=== PATIENT | female | born 1985 ===

== ENCOUNTER 2017-07-29 01:08 | Emergency (ER) | payer OTHER ==
[2017-07-29 01:32] VITALS: TEMP 98.1; O2SAT 100
[2017-07-29] MEDS ORDERED: Sodium Chloride 0.9% 1,000 ML IV ONE (02:46)
[2017-07-29] MEDS ORDERED: Sodium Chloride 0.9% 1,000 ML ONE (02:55)
[2017-07-29 03:09] LABS: RBC URINE < 1 /hpf (0-3); URINE BILIRUBIN NEGATIVE (NEGATIVE); URINE BLOOD NEGATIVE (NEGATIVE); URINE COLOR Colorless (YELLOW); URINE GLUCOSE (UA) NORMAL (Normal); URINE KETONE NEGATIVE (NEGATIVE); URINE LEUKOCYTE ESTERASE NEG Leu/uL (Negative); URINE PROTEIN NEGATIVE (NEGATIVE); URINE UROBILINOGEN NORMAL mg/dL (0.2-1.0); WBC URINE < 1 /hpf (0-5)
[2017-07-29 03:14] LABS: BASO # 0.1 K/uL (0.0-0.2); BASO % 1.1 % (0.0-2.0); EOS # 0.2 K/uL (0.0-0.7); EOS % 3.3 % (0.0-4.0); HEMATOCRIT 39.4 % (34.0-47.0); LYMPH # 1.5 K/uL (1.0-4.3); MEAN CELL VOLUME 91.7 fL (81.0-99.0); MEAN CORPUSCULAR HEMOGLOBIN 31.2 pg (27.0-31.0); MEAN CORPUSCULAR HGB CONC 34.1 g/dL (33.0-37.0); MEAN PLATELET VOLUME 8.6 fL (7.2-11.7); MONO # 0.5 K/uL (0.0-0.8); MONO % 7.1 % (0.0-10.0); RED CELL DISTRIBUTION WIDTH 12.9 % (11.5-14.5); WHITE BLOOD COUNT 7.5 K/uL (4.8-10.8)
[2017-07-29 03:25] LABS: ALB/GLOB RATIO 1.2 (1.0-2.1); ALCOHOL SERUM < 10 mg/dl (0-10); ALKALINE PHOSPHATASE 61 U/L (38-126); ALT/SGPT 29 U/L (9-52); AST/SGOT 21 U/L (14-36); BILIRUBIN,TOTAL 0.6 mg/dL (0.2-1.3); BLOOD UREA NITROGEN 13 mg/dL (7-17); CALCIUM 9.1 mg/dl (8.6-10.4); CARBON DIOXIDE 21 mmol/L (22-30); CHLORIDE 104 mmol/L (98-107); GFR AFRICAN-AMERICAN > 60; GLUCOSE,RANDOM 94 mg/dL (65-105); POTASSIUM 3.6 mmol/L (3.6-5.2); SODIUM 140 mmol/L (132-148)
--- NOTE | 2017-07-29 05:12 | C.PDOC ---
History Of Present Illness 31 y/o female with c/o of feeling shaky, with tightness in throat and chest, SOB , and weakness x 1 day. Pt states that she was drinking heavily for past 4 days and stopped yesterday and have been experiencing those symptoms since. Pt denies fever, CP, dizziness, palpitations , hallucinations, S/H ideations. Time Seen by Provider: 07/29/17 02:19 Chief Complaint (Nursing): Anxiety History Per: Patient History/Exam Limitations: no limitations Current Symptoms Are (Timing): Still Present Modifying Factor(s): Alcohol, Cocaine (quit 1 month) Associated Symptoms: Anxiety. denies: Depression, Suicidal Thoughts Past Medical History Vital Signs: Last Vital Signs Temp 98.1 F 07/29/17 01:24 Pulse 55 L 07/29/17 03:57 Resp 16 07/29/17 03:57 BP 123/76 07/29/17 03:57 Pulse Ox 100 07/29/17 05:12 - Medical History PMH: No Chronic Diseases Family History: States: Unknown Family Hx - Social History Hx Alcohol Use: Yes Hx Substance Use: No (stopped using coke and prescription drugs 2 mos. ago.) - Immunization History Hx Tetanus Toxoid Vaccination: No Hx Influenza Vaccination: No Hx Pneumococcal Vaccination: No Review Of Systems Constitutional: Negative for: Fever, Chills, Weakness, Malaise Cardiovascular: Negative for: Chest Pain, Palpitations Respiratory: Positive for: Shortness of Breath Gastrointestinal: Negative for: Nausea, Vomiting, Abdominal Pain Neurological: Negative for: Weakness, Numbness, Dizziness Psych: Positive for: Anxiety, Depression. Negative for: Suicidal ideation Physical Exam - Physical Exam Appears: Well, Non-toxic, No Acute Distress Skin: Normal Color Head: Atraumatic Eye(s): bilateral: Normal Inspection, PERRL, EOMI Oral Mucosa: Moist Neck: Normal Cardiovascular: Rhythm Regular, No Murmur Respiratory: Normal Breath Sounds Gastrointestinal/Abdominal: Normal Exam, Soft, No Tenderness Extremity: Normal ROM Extremity: Bilateral: Atraumatic Neurological/Psych: Oriented x3, Normal Speech, Normal Cognition Gait: Steady ED Course And Treatment - Laboratory Results Result Diagrams: 07/29/17 03:08 07/29/17 03:08 O2 Sat by Pulse Oximetry: 100 Pulse Ox Interpretation: Normal Progress Note: Pt appears anxious, and shaky , no acute hand tremors. Pt with stable vitals in NAD. labs and IVF, librium ordered. Pt is sleeping in stretcher in NAD and advised follow up in clinic Reassessment Condition: Improved Disposition Counseled Patient/Family Regarding: Diagnosis, Need For Followup, Rx Given - Disposition Disposition: HOME/ ROUTINE Disposition Time: 05:11 Condition: STABLE Additional Instructions: Please follow up with PMD or in clinic Advised detox Return to ER if worse Instructions: Anxiety (ED) Forms: [facility] (Algerian) - Clinical Impression Clinical Impression: Anxiety
[2017-07-29 05:21] VITALS: BP 105/67; PULSE 51; RESP 22
== END 2017-07-29 05:30 | disposition home or self-care (01) ==
LOC: C.ER 01:08
DX: F41.9 Anxiety disorder, unspecified (principal)
CPT/HCPCS: 80053; 80320; 81001; 84703; 85025; 96360; 99284; J7040

== ENCOUNTER 2018-11-01 20:18 | Emergency (ER) | payer MEDICAID, OTHER ==
[2018-11-01 20:31] VITALS: BP 115/86; PULSE 86; RESP 20; TEMP 98; O2SAT 100
--- NOTE | 2018-11-01 21:04 | C.PDOC ---
History Of Present Illness 33 y/o female presents to the ED for evaluation of bilateral ankle pain and left hand pain since yesterday. Patient states she twisted both ankles and fell forward hitting her left hand. Otherwise she denies any numbness, tingling, or extremity weakness. Patient is ambulatory with pain. Time Seen by Provider: 11/01/18 20:56 Chief Complaint (Nursing): Lower Extremity Problem/Injury History Per: Patient History/Exam Limitations: no limitations Onset/Duration Of Symptoms: Days Current Symptoms Are (Timing): Still Present Past Medical History Reviewed: Historical Data, Nursing Documentation, Vital Signs Vital Signs: Last Vital Signs Temp 98 F 11/01/18 20:27 Pulse 86 11/01/18 20:27 Resp 20 11/01/18 20:27 BP 115/86 11/01/18 20:27 Pulse Ox 100 11/01/18 20:27 - Medical History PMH: Anxiety, Depression Family History: States: Unknown Family Hx - Social History Hx Alcohol Use: Yes Hx Substance Use: No (stopped using coke and prescription drugs 2 mos. ago.) - Immunization History Hx Tetanus Toxoid Vaccination: No Hx Influenza Vaccination: No Hx Pneumococcal Vaccination: No Review Of Systems Except As Marked, All Systems Reviewed And Found Negative. Constitutional: Negative for: Fever Musculoskeletal: Positive for: Hand Pain (left), Foot Pain (B/L ankle pain) Skin: Negative for: Rash, Lesions Neurological: Negative for: Weakness, Numbness Physical Exam - Physical Exam Appears: Non-toxic, No Acute Distress Skin: Normal Color, Warm, Dry Head: Atraumatic, Normacephalic Eye(s): bilateral: Normal Inspection, PERRL, EOMI Oral Mucosa: Moist Neck: Normal ROM Chest: Symmetrical Respiratory: No Accessory Muscle Use, Other (no respiratory distress) Extremity: Normal ROM, No Deformity, Swelling (to the lateral malleolus, left > right; + Left 1st MTP joint swelling) Pulses: Left Dorsalis Pedis: Normal, Right Dorsalis Pedis: Normal Neurological/Psych: Oriented x3, Normal Speech ED Course And Treatment O2 Sat by Pulse Oximetry: 100 (RA) Pulse Ox Interpretation: Normal - Other Rad B/L Ankle x-ray X-Ray: Interpreted by Me Interpretation: (-) acute fx or dislocation L hand x-ray X-Ray: Interpreted by Me Interpretation: (-) acute fx or dislocation Progress Note: X-rays taken of left hand and bilateral ankles. No acute fractures. Notified patient of imaging results. Disposition - Disposition Referrals: Rodney Russo III, MD [Staff Provider] - Disposition: HOME/ ROUTINE Disposition Time: 22:10 Condition: STABLE Additional Instructions: Follow up with PMD within 1-2 days. Return to ED if feel worse. Prescriptions: Ibuprofen [Motrin Tab] 600 mg PO Q8 #30 tab Instructions: Ankle Sprain (DC), Muscle Strain (DC) Forms: [employer] (Kenyan) - Clinical Impression Clinical Impression: Ankle sprain, Hand sprain - PA / LEAN LEADER / Resident Statement MD/DO has reviewed & agrees with the documentation as recorded. - Scribe Statement The provider has reviewed the documentation as recorded by the Scribada Murrell All medical record entries made by the Scribe were at my direction and personally dictated by me. I have reviewed the chart and agree that the record accurately reflects my personal performance of the history, physical exam, medical decision making, and the department course for this patient. I have also personally directed, reviewed, and agree with the discharge instructions and disposition.
--- NOTE | 2018-11-02 08:22 | RAD ---
Date of service: 11/01/2018 PROCEDURE: HISTORY: fall COMPARISON: None TECHNIQUE: Three views each ankle FINDINGS: No fracture, dislocation. Ankle mortise intact. Talar dome intact. Inferior right distal fibular epiphysis cortical osseous hypertrophy. Mild bilateral ankle joint swelling-each ankle joint swelling is more pronounced bordering each lateral malleolus left slightly greater right. IMPRESSION: No fracture or dislocation is suggested. Mild soft tissue swelling in the area of interest is noted.
--- NOTE | 2018-11-02 08:32 | RAD ---
PROCEDURE: Left Hand Radiographs. HISTORY: fall COMPARISON: None. FINDINGS: BONES: Normal. No fracture. JOINTS: Normal. No osteoarthritic changes. SOFT TISSUES: Normal. OTHER FINDINGS: None. IMPRESSION: Normal left hand radiographs.
== END 2018-11-01 22:24 | disposition home or self-care (01) ==
LOC: C.ER 20:18
DX: S93.402A Sprain of unspecified ligament of left ankle, initial encounter (principal); S93.401A Sprain of unspecified ligament of right ankle, initial encounter; S63.92XA Sprain of unspecified part of left wrist and hand, initial encounter; W18.30XA Fall on same level, unspecified, initial encounter